=== PATIENT | female | born 1995 | race Caucasian/White ===

== ENCOUNTER 2018-04-05 10:35 | Outpatient (CLI) | payer MEDICAID ==
[~2018-04-05] VITALS: Ht 162.6 cm; Wt 70.0 kg
[2018-04-05 10:38] VITALS: Ht 162.6 cm; Wt 70.0 kg
--- NOTE | 2018-04-05 15:11 | TRIAGE ---
OB Triage Datetime Report Generated by CPN: 04/05/2018 15:11 Datetime: 04/05/2018 15:08 Stage of : OB Triage Maternal Assessment Level of Consciousness: Fully Conscious DTR's/Clonus: DTRs 1+ Headache: Denies Breath Sounds, Left: Clear and Equal Breath Sounds, Right: Clear and Equal Nausea/Vomiting: Denies RUQ Epigastric Pain: Denies Labor Evaluation Frequency: 8 Monitor Mode: External Duration (sec)2399: 40-60 Quality: Mild Pattern: Normal: <= 5 Contractions in 10 Minutes Resting Tone [place]: Relaxed Heart Rate FHR Baseline Rate: 140 Monitor Mode: External US Variability: Moderate 6-25 bpm Accelerations: 15X15 Decelerations: None Category: Category I Pain Assessment Pain Scale: 5 Pain Presence: Intermittent Pain Type: Contraction Pain Location: Abdomen; Back Pain Goal: 3 Membrane Status: Intact Datetime: 04/05/2018 14:52 Vaginal Exam Dilatation (cms): 0.5 Effacement (%): 50 Station: -2 Exam By: PETTY UGARTE Vaginal Bleeding: None Cervix, Consistency: Soft Cervix, Position: Midposition Presentation 'A': Cephalic Datetime: 04/05/2018 12:48 Stage of : OB Triage Maternal Assessment Level of Consciousness: Fully Conscious DTR's/Clonus: DTRs 1+ Headache: Denies Breath Sounds, Left: Clear and Equal Breath Sounds, Right: Clear and Equal Nausea/Vomiting: Denies RUQ Epigastric Pain: Denies Labor Evaluation Frequency: 3-6 Monitor Mode: External Duration (sec)2399: 40-60 Quality: Mild Pattern: Normal: <= 5 Contractions in 10 Minutes Resting Tone [place]: Relaxed Heart Rate FHR Baseline Rate: 135 Monitor Mode: External US Variability: Moderate 6-25 bpm Accelerations: 15X15 Decelerations: None Pain Assessment Pain Scale: 5 Pain Presence: Intermittent Pain Type: Contraction Pain Location: Abdomen; Back Pain Goal: 3 Membrane Status: Intact Datetime: 04/05/2018 12:00 Stage of : OB Triage Maternal Assessment Level of Consciousness: Fully Conscious DTR's/Clonus: DTRs 1+ Headache: Denies Breath Sounds, Left: Clear and Equal Breath Sounds, Right: Clear and Equal Nausea/Vomiting: Denies RUQ Epigastric Pain: Denies Labor Evaluation Frequency: 3-6 Monitor Mode: External Duration (sec)2399: 40-60 Quality: Mild Pattern: Normal: <= 5 Contractions in 10 Minutes Resting Tone [place]: Relaxed Heart Rate FHR Baseline Rate: 135 Monitor Mode: External US Variability: Moderate 6-25 bpm Accelerations: 15X15 Decelerations: None Category: Category I Pain Assessment Pain Scale: 5 Pain Presence: Intermittent Pain Type: Contraction Pain Location: Abdomen; Back Pain Goal: 3 Membrane Status: Intact Datetime: 04/05/2018 11:04 Maternal Assessment Level of Consciousness: Fully Conscious DTR's/Clonus: DTRs 1+ Headache: Denies Blurred Vision: No Respiratory Effort: Unlabored Breath Sounds, Left: Clear and Equal Breath Sounds, Right: Clear and Equal Nausea/Vomiting: Denies RUQ Epigastric Pain: Denies Facial Edema: None Labor Evaluation Frequency: 2-5 Monitor Mode: External Duration (sec)2399: 40-60 Quality: Mild Pattern: Normal: <= 5 Contractions in 10 Minutes Resting Tone [place]: Relaxed Heart Rate FHR Baseline Rate: 135 Monitor Mode: External US Variability: Moderate 6-25 bpm Accelerations: 15X15 Decelerations: None Category: Category I Pain Assessment Pain Scale: 5 Pain Presence: Intermittent Pain Type: Contraction Pain Location: Abdomen; Back Pain Goal: 3 Membrane Status: Intact Datetime: 04/05/2018 10:43 Vaginal Exam Dilatation (cms): 0.5 Effacement (%): 50 Station: -3 Exam By: PETTY UGARTE Vaginal Bleeding: None Cervix, Consistency: Soft Cervix, Position: Midposition Presentation 'A': Cephalic Datetime: 04/05/2018 10:39 Assessment Type: Triage EGA: 39.3 Maternal Assessment Level of Consciousness: Fully Conscious DTR's/Clonus: DTRs 2+; No Clonus Headache: Denies Blurred Vision: No Respiratory Effort: Unlabored; Regular Rhythm; Equal Expansion Breath Sounds, Left: Clear and Equal Breath Sounds, Right: Clear and Equal Nausea/Vomiting: Denies RUQ Epigastric Pain: Denies Lower Extremities Edema: None Degree: None Upper Extremities Edema: None Degree: None Facial Edema: None Fall Risk Assessment History of Falling: (0) No Secondary Diagnosis: (0) No Ambulatory Aid: (0) Bedrest/Nurse Assist IV Therapy: (0) No Gait: (0) Normal/Bedrest/Immobile Mental Status: (0) Oriented to Own Ability Fall Score: 0 Fall Risk Score Definition: No Risk: No action required Datetime: 04/05/2018 10:28 Time of Arrival: 04/05/2018 10:28 Arrived By: Ambulatory Arrived From: Home Chief Complaint: R/O LABOR Movement: Present Contractions: Irregular Time Contractions Began: 04/05/2018 04:00 Rupture of Membranes: Denies Vaginal Discharge: Denies Recent Sexual Intercouse: Denies Abdominal Trauma: Not Applicable Additional Patient Complaints: NONE Time Provider Notified: 04/05/2018 11:00 Provider Notified: BAYRON Initial Plan: MONITOR AND VE
--- NOTE | 2018-04-05 18:37 | PN ---
Triage Information Date/Time March 28, 2018 Reason for visit: Uterine contractions Weeks of Gestation 39 weeks and 3 days /Para 1 para 0 Diabetes: none Hypertention: none Additional information 22-year-old with IUP at 39 weeks and 3 days with complaint of contractions presented for rule out labor. She denies any leaking of fluid, vaginal bleeding or decreased movement. Denies any complication during the course. Objective Heart Rate: 130's Heart Rate Comments NST: Category 1 Contractions: < 5 Minutes Apart Exam General appearance: Alert and oriented x4. Appears to be in mild distress Abdomen: Soft, gravid, fundal height consider gestational age NST: Category 1 BPP: 09/13 VERONIKA: 8.1 Vaginal exam: /-2 Patient ambulated for 2 hours and after repeat examination did not show any cervical change Results/Medications Imaging Results PROCEDURE: Obstetrical ultrasound for biophysical profile CLINICAL INDICATION: Biophysical profile. . TECHNIQUE: Obstetrical ultrasound of the uterus for biophysical profile. Transabdominal views are obtained. COMPARISON: 03/23/2018 FINDINGS: Single intrauterine gestation. Presentation: Cephalic. Placenta: Anterior. No evidence of placental abruption. No evidence of placenta previa. breathing movement = 2/2 tone = 2/2 motion = 2/2 VERONIKA = 2/2 VERONIKA = 8.1 cm heart rate: 152 beats per minute IMPRESSION: Single intrauterine gestation. Biophysical profile 09/13 RPTAT: AADD Disposition: Discharge Assessment/Plan IUP at 39 weeks and 3 days No evidence of labor Contraction, false labor pain No cervical change noted testing reassuring Labor precautions kick count discussed Discharge patient home Follow-up with primary OB office in 48 hours or sooner as needed discussed with patient All questions were answered to the patient with satisfaction LIZZY WESTBROOK MD Apr 05, 2018 18:37
[2018-04-06] MEDS ORDERED: PREN-93 PO (02:11)
== END 2018-04-05 15:27 | disposition home or self-care (01) ==
LOC: OBT 10:35 → L-D 10:35 → OBT 15:27
PROVIDERS: ATTEND Obstetrics & Gynecology
DX: O47.1 False labor at or after 37 completed weeks of gestation (principal); Z3A.39 39 weeks gestation of pregnancy
CPT/HCPCS: 76818; G0463

== ENCOUNTER 2018-04-06 02:00 | Inpatient (IN) | payer MEDICAID ==
[~2018-04-06] VITALS: Ht 162.6 cm; Wt 68.2 kg
[2018-04-06 02:08] VITALS: Ht 162.6 cm; Wt 68.2 kg
[2018-04-06] MEDS ORDERED: PREN-93 PO (02:11)
[2018-04-06 02:25] VITALS: BP 118/71; PULSE 94; RESP 17
[2018-04-06] MEDS ORDERED: LIDOCAINE 1% (MPF) 30 ML INJ INJ PRN (04:30)
[2018-04-06] MEDS ORDERED: OXYCODONE/ASPIRIN (4.88/325) TAB PO PRN ×3 (04:30→09:00)
[2018-04-06] MEDS ORDERED: IBUPROFEN 600 MG TAB PO PRN (04:30)
[2018-04-06] MEDS ORDERED: BUTORPHANOL 2 MG INJ IV PRN (04:30)
[2018-04-06] MEDS ORDERED: BUTORPHANOL 1 MG INJ IV PRN (04:30)
[2018-04-06] MEDS ORDERED: AMPICILLIN 2 GM/NS (PMX) 100 ML IV ONE (04:30)
[2018-04-06] MEDS ORDERED: OXYTOCIN 30 UNITS/LR 500 ML IV PRN ×2 (04:30→09:00)
[2018-04-06] MEDS ORDERED: CARBOPROST 250 MCG INJ IM PRN ×2 (04:30→09:00)
[2018-04-06] MEDS ORDERED: MISOPROSTOL 200 MCG TAB PR PRN ×2 (04:30→09:00)
[2018-04-06] MEDS ORDERED: OXYTOCIN 30 UNITS/LR 500 ML IV SCH ×3 (04:30→08:41)
[2018-04-06] MEDS ORDERED: METHYLERGONOVINE 0.2 MG INJ IM PRN ×2 (04:30→09:00)
[2018-04-06] MEDS: LACTATED RINGER'S 1,000 ML IV SCH ×2 (04:51→06:24)
--- NOTE | 2018-04-06 05:01 | PREAC ---
Date/Time of Note Date/Time of Note DATE: 04/06/18 TIME: 05:00 Anesthesia Eval and Record Evaluation Time Pre-Procedure Interview DATE: 04/06/18 TIME: 05:00 Age 22 Sex female NPO: 8 hrs Preoperative diagnosis labor pain Planned procedure labor pain Past Medical History Past Medical History: None Surgery & Anesthesia Issues No known issue Meds Anticoagulation: No Beta Radha within 24 hr: No Reason Beta Radha not given: Pt. not on B-Radha Reported Medications Vit No.124/Iron/FA ( Vitamin Tablet) 1 Each Tablet, 1 EACH PO, TAB 04/06/18 Current Medications Lactated Ringer's 1,000 ml @ 125 mls/hr Q8H IV Last administered on 04/06/18at 04:51; Admin Dose 125 MLS/HR; Start 04/06/18 at 04:04 Ampicillin 100 ml @ 100 mls/hr ONCE ONCE IV ; Start 04/06/18 at 04:30; Stop 04/06/18 at 05:29 Ampicillin 50 ml @ 100 mls/hr Q4H IV ; Start 04/06/18 at 08:30 Butorphanol Tartrate (Stadol) 1 mg Q2H PRN IV .PAIN; Start 04/06/18 at 04:30 Butorphanol Tartrate (Stadol) 2 mg Q2H PRN IV .PAIN; Start 04/06/18 at 04:30 Lidocaine (Xylocaine 1% (Mpf)) 30 ml ONCE PRN INJ .EPISIOTOMY; Start 04/06/18 at 04:30 Oxytocin/Lactated Ringer's 500 ml @ 500 mls/hr ONCE POST IV ; Start 04/06/18 at 04:30 Oxytocin/Lactated Ringer's 500 ml @ 125 mls/hr POST IV ; Start 04/06/18 at 04:30 Ibuprofen (Motrin) 600 mg ONCE PRN PO .PAIN 1-5; Start 04/06/18 at 04:30 Oxycodone/Aspirin (Percodan) 2 tab ONCE PRN PO .PAIN 6-10; Start 04/06/18 at 04:30 Oxytocin/Lactated Ringer's 500 ml @ 0 mls/hr ONCE PRN IV .VAGINAL BLEEDING; Start 04/06/18 at 04:30 Methylergonovine Maleate (Methergine) 0.2 mg ONCE PRN IM .VAGINAL BLEEDING; Start 04/06/18 at 04:30 Carboprost Tromethamine (Hemabate) 250 mcg ONCE PRN IM .VAGINAL BLEEDING; Start 04/06/18 at 04:30 Misoprostol (Cytotec) 1,000 mcg ONCE PRN [place] .VAGINAL BLEEDING; Start 04/06/18 at 04:30 Meds reviewed: Yes Allergies Coded Allergies: No Known Allergy (Unverified , 04/06/18) Allergies Reviewed: Yes Labs/Studies Labs Reviewed: Reviewed by anesthesiologist test: Positive Pre-procedure Exam Last vitals Vital Signs Date Temp Pulse Resp B/P (MAP) Pulse Ox O2 O2 Flow FiO2 Time Delivery Rate 04/06/18 98.8 94 17 118/71 02:25 (87) Airway: Adequate mouth opening, Adequate thyromental dist Mallampati: Mallampati III Teeth: Normal Lung: Normal Heart: Normal ASA Physical Status ASA physical status: 2 Emergency: None Planned Anesthetic Neuraxial: Epidural Planned Pain Management Epidural, Parenteral pain med Pre-operative Attestations Prior to commencing anesthesia and surgery, the patient was re-evaluated, there was verification of: *The patient's identity *The results of appropriate recent lab work and preoperative vital signs *The above evaluation not changing prior to induction *Anesthetic plan, risk benefits, alternative and complications discussed with patient/family; questions answered; patient/family understands, accepts and wis hes to proceed. LORIE CASAS MD Apr 06, 2018 05:01
--- NOTE | 2018-04-06 05:24 | TRIAGE ---
OB Triage Datetime Report Generated by CPN: 04/06/2018 05:24 Datetime: 04/06/2018 05:15 Assessment Type: Admission Assessment Vaginal Bleeding: None Level of Consciousness: Fully Conscious DTR's/Clonus: DTRs 2+; No Clonus Headache: Denies Blurred Vision: No Respiratory Effort: Unlabored; Regular Rhythm; Equal Expansion Breath Sounds, Left: Clear and Equal Breath Sounds, Right: Clear and Equal Nausea/Vomiting: Denies RUQ Epigastric Pain: Denies Lower Extremities Edema: None Degree: None Upper Extremities Edema: None Degree: None Facial Edema: None History of Falling: (0) No Secondary Diagnosis: (0) No Ambulatory Aid: (0) Bedrest/Nurse Assist IV Therapy: (20) Yes Gait: (0) Normal/Bedrest/Immobile Mental Status: (0) Oriented to Own Ability Fall Score: 20 Fall Risk Score Definition: No Risk: No action required Frequency: 3-7 Duration (sec)2399: 50-60 Pattern: Normal: <= 5 Contractions in 10 Minutes Resting Tone [place]: Relaxed FHR Baseline Rate: 145 Variability: Moderate 6-25 bpm Accelerations: 15X15 Decelerations: Early; Variable Category: Category II Pain Scale: 7 Pain Presence: Intermittent Pain Type: Contraction Pain Location: Abdomen Pain Goal: 2 Datetime: 04/06/2018 05:14 Time of Arrival: 04/06/2018 04:30 EGA: 39.4 Arrived By: Wheelchair Arrived From: Emergency Dept Datetime: 04/06/2018 03:50 Membrane Status: Ruptured Datetime: 04/06/2018 02:39 Time of Arrival: 04/06/2018 02:00 EGA: 39.4 Arrived By: Wheelchair Arrived From: Home Chief Complaint: CONTRACTIONS SINCE 04/05 LEAKING FLUIDS Movement: Present Contractions: Regular Time Contractions Began: 04/05/2018 04:00 Contractions: 5 MINUTES Rupture of Membranes: Unsure Vaginal Bleeding: Scant Vaginal Discharge: Present Recent Sexual Intercouse: Denies Abdominal Trauma: Not Applicable Patient Complaints: Contractions; Other Time Provider Notified: 04/06/2018 03:08 Provider Notified: DR. ARIAS Initial Plan: EFM, SVE, NITRIZINE, ROM+, CALL OB Datetime: 04/06/2018 02:20 Dilatation (cms): 2.0 Effacement (%): 80 Station: -3 Exam By: Sonia CLEVELAND Vaginal Bleeding: Scant Nitrazine: INDETERMINATE Cervix, Consistency: Soft Cervix, Position: Posterior Datetime: 04/06/2018 02:16 Stage of : OB Triage Level of Consciousness: Fully Conscious DTR's/Clonus: DTRs 2+; No Clonus Headache: Denies Blurred Vision: No Respiratory Effort: Unlabored; Regular Rhythm; Equal Expansion Breath Sounds, Left: Clear and Equal Breath Sounds, Right: Clear and Equal Nausea/Vomiting: Denies RUQ Epigastric Pain: Denies Lower Extremities Edema: None Degree: None Upper Extremities Edema: None Degree: None Facial Edema: None Temperature Route: Oral History of Falling: (0) No Secondary Diagnosis: (0) No Ambulatory Aid: (0) Bedrest/Nurse Assist IV Therapy: (0) No Gait: (0) Normal/Bedrest/Immobile Mental Status: (0) Oriented to Own Ability Fall Score: 0 Fall Risk Score Definition: No Risk: No action required Pain Scale: 8 Pain Presence: Intermittent Pain Type: Contraction Pain Location: Abdomen; Back Pain Goal: 0 Pain Relief Measures: Comfort Measures Datetime: 04/06/2018 02:12 Monitor Mode: External Contraction Comments: APPLIED Monitor Mode: External US Comments: APPLIED Datetime: 04/05/2018 10:39 EGA: 39.3 Fall Score: 0 Fall Risk Score Definition: No Risk: No action required Membranes Ruptured Date/Time: 04/06/2018 02:00 Membranes Rupture Method: Spontaneous Amniotic Fluid Color: Clear Amniotic Fluid Amount: Small
[2018-04-06] MEDS ORDERED: ZOLPIDEM 5 MG TAB PO PRN ×2 (05:30→06:00)
[2018-04-06] MEDS ORDERED: HYDROmorphONE 0.5 MG/0.5 ML SYG IV PRN ×4 (05:30→06:00)
[2018-04-06] MEDS ORDERED: KETOROLAC 30 MG INJ IV PRN ×2 (05:30→06:00)
[2018-04-06] MEDS ORDERED: ONDANSETRON 4 MG INJ IV PRN ×3 (05:30→09:00)
[2018-04-06] MEDS ORDERED: FENTAnyl 2MCG/ML-ROPIV 0.2% 100 ML BAG EPI SCH ×2 (05:30→06:00)
[2018-04-06] MEDS ORDERED: NALOXONE (0.4 MG/ML) INJ IV PRN ×2 (05:30→06:00)
[2018-04-06] MEDS ORDERED: DIPHENHYDRAMINE 50 MG INJ IV PRN ×2 (05:30→06:00)
--- NOTE | 2018-04-06 05:53 | PREAC ---
Date/Time of Note Date/Time of Note DATE: 04/06/18 TIME: 05:53 Anesthesia Eval and Record Evaluation Time Pre-Procedure Interview DATE: 04/06/18 TIME: 05:53 Age 22 Sex female NPO: 8 hrs Preoperative diagnosis labor epidural Planned procedure labor pain Past Medical History Past Medical History: None Surgery & Anesthesia Issues No known issue Meds Anticoagulation: No Beta Radha within 24 hr: No Reason Beta Radha not given: Pt. not on B-Radha Reported Medications Vit No.124/Iron/FA ( Vitamin Tablet) 1 Each Tablet, 1 EACH PO, TAB 04/06/18 Current Medications Lactated Ringer's 1,000 ml @ 125 mls/hr Q8H IV Last administered on 04/06/18at 04:51; Admin Dose 125 MLS/HR; Start 04/06/18 at 04:04 Ampicillin 50 ml @ 100 mls/hr Q4H IV ; Start 04/06/18 at 08:30 Butorphanol Tartrate (Stadol) 1 mg Q2H PRN IV .PAIN; Start 04/06/18 at 04:30 Butorphanol Tartrate (Stadol) 2 mg Q2H PRN IV .PAIN; Start 04/06/18 at 04:30 Lidocaine (Xylocaine 1% (Mpf)) 30 ml ONCE PRN INJ .EPISIOTOMY; Start 04/06/18 at 04:30 Oxytocin/Lactated Ringer's 500 ml @ 500 mls/hr ONCE POST IV ; Start 04/06/18 at 04:30 Oxytocin/Lactated Ringer's 500 ml @ 125 mls/hr POST IV ; Start 04/06/18 at 04:30 Ibuprofen (Motrin) 600 mg ONCE PRN PO .PAIN 1-5; Start 04/06/18 at 04:30 Oxycodone/Aspirin (Percodan) 2 tab ONCE PRN PO .PAIN 6-10; Start 04/06/18 at 04:30 Oxytocin/Lactated Ringer's 500 ml @ 0 mls/hr ONCE PRN IV .VAGINAL BLEEDING; Start 04/06/18 at 04:30 Methylergonovine Maleate (Methergine) 0.2 mg ONCE PRN IM .VAGINAL BLEEDING; Start 04/06/18 at 04:30 Carboprost Tromethamine (Hemabate) 250 mcg ONCE PRN IM .VAGINAL BLEEDING; Start 04/06/18 at 04:30 Misoprostol (Cytotec) 1,000 mcg ONCE PRN [place] .VAGINAL BLEEDING; Start 04/06/18 at 04:30 Hydromorphone HCl (Dilaudid) 0.2 mg Q2H PRN IV .PAIN 1-5; Start 04/06/18 at 05:30 Hydromorphone HCl (Dilaudid) 0.4 mg Q2H PRN IV .PAIN 6-10; Start 04/06/18 at 05:30 Ketorolac Tromethamine (Toradol) 30 mg Q6H PRN IV .PAIN 6-10; Start 04/06/18 at 05:30; Stop 04/09/18 at 05:29 Diphenhydramine HCl (Benadryl) 25 mg Q4H PRN IV .PRURITUS; Start 04/06/18 at 05:30 Ondansetron HCl (Zofran Inj) 4 mg Q6H PRN IV .NAUSEA/VOMITING; Start 04/06/18 at 05:30 Zolpidem Tartrate (Ambien) 5 mg HS MAY REPEAT X 1 PRN PO .INSOMNIA; Start 04/06/18 at 05:30 Naloxone HCl (Narcan) 0.2 mg Q2M PRN IV .RESP RATE; Start 04/06/18 at 05:30 Fentanyl/ Ropivacaine 100 ml EPIDURAL (PCEA) EPI ; Start 04/06/18 at 05:30 Meds reviewed: Yes Allergies Coded Allergies: No Known Allergy (Unverified , 04/06/18) Allergies Reviewed: Yes Labs/Studies Labs Reviewed: Reviewed by anesthesiologist Result Diagram: 04/06/18 0445 Laboratory Tests 04/06/18 04:45 Blood Bank Test 04/06/18 04:45 Antibody Screen NEGATIVE Blood Type O POSITIVE Rh Immune Globulin Candidate NO test: Positive Pre-procedure Exam Last vitals Vital Signs Date Temp Pulse Resp B/P (MAP) Pulse Ox O2 O2 Flow FiO2 Time Delivery Rate 04/06/18 98.8 94 17 118/71 02:25 (87) Airway: Adequate mouth opening, Adequate thyromental dist Mallampati: Mallampati III Teeth: Normal Lung: Normal Heart: Normal ASA Physical Status ASA physical status: 2 Emergency: None Planned Anesthetic Neuraxial: Epidural Planned Pain Management Epidural, Parenteral pain med Pre-operative Attestations Prior to commencing anesthesia and surgery, the patient was re-evaluated, there was verification of: *The patient's identity *The results of appropriate recent lab work and preoperative vital signs *The above evaluation not changing prior to induction *Anesthetic plan, risk benefits, alternative and complications discussed with patient/family; questions answered; patient/family understands, accepts and wishes to proceed. LORIE CASAS MD Apr 06, 2018 05:53
[2018-04-06] MEDS ORDERED: ROPIVACAINE 0.5 % 30 ML VIAL ONE (07:00)
--- NOTE | 2018-04-06 07:00 | HP ---
Date/Time of Note Date/Time of Note DATE: 04/06/18 TIME: 06:52 OB - History Hx of Present Free Text/Dictation 22y.o primigravida here at 39w4d with uc's and leaking fluid since am 04/05/18. Initial VE 2/80/-3 clear ROM plus pos EFM uc 2-5min apart GBS positive admitted for expctant management Chief Complaint: uc's and leaking fluid Estimated Due Date: Apr 09, 2018 : 1 Para: 0 Spontaneous : 0 Therapeutic : 0 Care: Good Care Ultrasounds: Normal mid trimester US Obstetrical Complications: None Medical Complications: None Past Family/Social History * Past Medical, Surgical, Family and Obstetric Histories reviewed from chart. Blood Type: O+ Rubella: unknown RPR/VDRL: Unknown GBS Status: Positive HBsAG: Negative OB Admission Exam Vital Signs Vital Signs Vital Signs Date Temp Pulse Resp B/P (MAP) Pulse Ox O2 O2 Flow FiO2 Time Delivery Rate 04/06/18 98.8 94 17 118/71 02:25 (87) Physical Exam HEENT: WNL Heart: Rhythm Normal Lungs: Clear, Equal Abdomen: WNL Extremities: Normal Reflexes: Normal Cervical Dilatation: 2cm Effacement: 75% Station: -3 Membranes: Ruptured Amniotic Fluid: Clear Heart Rate: 130's Accelerations: Accelerations Present Decelerations: No Decelerations Varibility: Moderate Contractions on Admission: < 5 Minutes Apart Intensity: Moderate Last 72 hours Lab Results CBC & BMP 04/06/18 04:45 OB Assessment/Plan Reason for admission: active labor Other Assessment: A IUP 39w4d Plan: Expectant Management, Other (poss augmentation with pitocin) LINDA ALEX MD Apr 06, 2018 07:00
[2018-04-06] MEDS ORDERED: AMPICILLIN 1 GM/NS (PMX) 50 ML IV SCH (08:30)
--- NOTE | 2018-04-06 08:41 | LDN ---
Date/Time of Note Date/Time of Note DATE: 04/06/18 TIME: 08:40 Delivery Summary Weeks of Gestation 39 Placenta Delivered: Spontaneously Meconium: Thick Episiotomy: No Laceration repair: 1st degree vaginal laceratio repair with 2-0 chromic Anesthesia type: Epidural Estimated blood loss: 150 Sponge & Needle done & correct: Yes All needle counts correct: Yes Any foreign bodies felt in the: No Infant Delivery Information Sex Infant Sex: male Apgars 1 Minute: 9 5 Minute: 9 Suctioning Nose & mouth suctioned at madisyn: No Delee suction performed: No Umbilical Cord Umbilical cord with: 3 Vessels Cord presentations: no nuchal cord Cord Blood was obtained: Yes MARVIN ARIAS MD Apr 06, 2018 08:41
[2018-04-06] MEDS ORDERED: LANOLIN HPA 1 PKT TOP PRN (09:00)
[2018-04-06] MEDS: SENNA/DOCUSATE NA (8.6MG/50MG) TAB PO SCH ×2 (09:00→21:22)
[2018-04-06] MEDS ORDERED: WITCH HAZEL/GLYCERIN PAD PR PRN (09:00)
[2018-04-06] MEDS ORDERED: ACETAMINOPHEN 325 MG TAB PO PRN (09:00)
[2018-04-06] MEDS ORDERED: NACL 0.9% 3 ML SYG IV SCH (09:00)
[2018-04-06 10:45] VITALS: BP 123/73; PULSE 66; RESP 20
[2018-04-06 11:45] VITALS: BP 126/75; PULSE 67; RESP 19
[2018-04-06 12:15] VITALS: BP 113/66; PULSE 62; RESP 18
[2018-04-06 16:15] VITALS: BP 106/59; PULSE 77; RESP 19
[2018-04-06] MEDS: IBUPROFEN 600 MG TAB PO SCH ×2 (18:00→23:41)
[2018-04-06 20:15] VITALS: BP 101/56; PULSE 69; RESP 18
[2018-04-07] VITALS: BP 98/66; PULSE 72; RESP 18
--- NOTE | 2018-04-07 01:45 | PD.PPDC ---
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 Discharge Instruction Condition [id number] Patient Condition: [id number] Good Diet Echyt2Hi Diet: Gxrbb4p Resume Regular Diet Activity/Restrictions [id number] Activity: Cqkyu8y Normal Activity May Shower [id number] Restrictions: Gjhvy0w No Exercising No Lifting No Driving No Sexual Activity Nothing in the Vagina No [place] No Tampons, douche Follow-up Follow-up with Physician: 3, Week/Weeks Return to clinic for [id number] CASER IN Instructions: Scwxg0i Fever greater than 101 Chills Worsening abdominal pain Excessive Vaginal Bleeding More than 2 pads per hour Unable to tolerate diet [id number] OB Instructions: Glqlp2h Breast Tenderness Depression Blurried Vision Headache [id number] Surgical Instructions: [id number] Incisional Drainage Incisional Redness MARVIN ARIAS MD Apr 07, 2018 01:45
--- NOTE | 2018-04-07 01:47 | DS ---
Date/Time of Note Date/Time of Note DATE: 04/07/18 TIME: 01:47 Obstetrical Discharge Record Final Diagnosis Final Diagnosis: Term delivered Vaginal Delivery Obstetrical Delivery: Spontaneous, Laceration, Repaired Condition on Discharge Physical Assessment Last Vitals: stable afebrile Voiding: Yes Bowel Movement: Yes Breast: Soft, non-tender, Filling Fundus: Firm Abdomen and Incision: soft nt Calf Tenderness: No Patient Condition: Fair MARVIN ARIAS MD Apr 07, 2018 01:47
[2018-04-07 04:09] VITALS: BP 94/55; PULSE 60; RESP 18
[2018-04-07] MEDS: IBUPROFEN 600 MG TAB PO SCH ×4 (05:40→23:27)
[2018-04-07 08:00] VITALS: BP 88/57; PULSE 61; RESP 20
[2018-04-07] MEDS ORDERED: INFLUENZA VIRUS VACCINE 0.5 ML (DISPENSING) IM* ONE (09:00)
[2018-04-07] MEDS: SENNA/DOCUSATE NA (8.6MG/50MG) TAB PO SCH ×2 (09:28→21:00)
--- NOTE | 2018-04-07 11:02 | PAC ---
Date/Time of Note Date/Time of Note DATE: 04/07/18 TIME: 11:01 Post-Anesthesia Notes Post-Anesthesia Note Last documented vital signs Vital Signs Date Temp Pulse Resp B/P (MAP) Pulse Ox O2 O2 Flow FiO2 Time Delivery Rate 04/07/18 98.0 61 20 88/57 (67) Room Air 08:00 Activity: WNL Respiratory function: WNL Cardiovascular function: WNL Mental status: Baseline Pain reasonably controlled: Yes Hydration appropriate: Yes Nausea/Vomiting absent: Yes LORIE CASAS MD Apr 07, 2018 11:02
[2018-04-07 15:26] VITALS: BP 99/54; PULSE 71; RESP 18
[2018-04-07 19:45] VITALS: BP 110/62; PULSE 71; RESP 18
[2018-04-08 04:00] VITALS: BP 111/60; PULSE 71; RESP 18
[2018-04-08] MEDS: IBUPROFEN 600 MG TAB PO SCH ×2 (05:37→11:28)
[2018-04-08 07:55] VITALS: BP 100/64; PULSE 67; RESP 16
[2018-04-08] MEDS: SENNA/DOCUSATE NA (8.6MG/50MG) TAB PO SCH (09:01)
[2018-04-08] MEDS ORDERED: DIPHTH/TET/ACEL PERTUSS (ADULT) 0.5 ML VIAL IM* ONE (11:30)
== END 2018-04-08 16:18 | disposition home or self-care (01) | DRG 807 ==
LOC: L-D 02:00 → OBT 02:00 → L-D 03:40 → PP1 10:32
PROVIDERS: ADMIT Obstetrics & Gynecology; ATTEND Obstetrics & Gynecology
PROC: 10E0XZZ Delivery of Products of Conception, External Approach (ICD-10-PCS; principal; 2018-04-06)
PROC: 0HQ9XZZ Repair Perineum Skin, External Approach (ICD-10-PCS; 2018-04-06)
DX: O70.0 First degree perineal laceration during delivery (principal); Z37.0 Single live birth; Z3A.39 39 weeks gestation of pregnancy; Z23 Encounter for immunization
CPT/HCPCS: 76815; 84112; 85014; 85018; 85025; 85610; 85730; 86592; 86850; 86900; 86901; 87340; 90686; 90715; 99464; G0463; J0290; J2590; J2795; J3010; J7120